=== PATIENT | male | born 1975 | race Caucasian/White ===

== ENCOUNTER 2022-06-01 13:52 | Emergency (ER) | payer SELFPAY ==
[2022-06-01 13:54] VITALS: TEMP 36.7; BMI 24.4
[2022-06-01 14:01] VITALS: BP 115/66; PULSE 64; RESP 18; TEMP 36.6; O2SAT 99
--- NOTE | 2022-06-01 14:30 | ED.VIS.BACK ---
HPI History of Present Illness Chief Complaint: Back Narrative Narrative: Patient presents with back pain that started after lifting his dog, he heard a snap in his back and he is in too much pain to ambulate. The pain does not radiate into his leg. He has no bowel or bladder compromise. No saddle anesthesia. He does not have a foot drop. [facility] Medical History no medical history Home Medications oxycodone-acetaminophen 5 mg-325 mg tablet (Percocet) 1 tab PO Q6H PRN pain 3 days #12 tabs 06/01/22 [Rx Last Taken Unknown] oxycodone-acetaminophen 5 mg-325 mg tablet 1 tab PO Q6H PRN PRN Pain 3 days #12 TABLETS 06/02/22 [Rx Last Taken Unknown] Allergy/AdvReac Type Severity Reaction Status Date / Time guaifenesin [From Robitussin] Allergy Hives Verified 06/01/22 13:53 Surgical History no surgical history Social History Smoking Status: Never smoker ROS ROS ED ROS Narrative Past medical history: Reviewed Medications: Reviewed Social history: Noncontributory Review of systems: All systems negative except as indicated General: No fever Neck: No neck pain Cardiovascular: No chest pain Respiratory: No shortness of breath or cough Gastrointestinal: No abdominal pain, nausea vomiting or diarrhea Genitourinary: No dysuria, no urinary retention symptoms or incontinence. Musculoskeletal: Back pain as in HPI Skin: No rash Neurological: No weakness or paresthesias Hematologic: No easy bleeding or easy bruising EXAM Physical Exam Narrative Exam Narrative: Vitals reviewed General: Patient appears uncomfortable HEENT: Moist mucous membranes Eyes: Right eye shows haziness from a prior infection. Left eye is normal Neck: Nontender Cardiovascular normal heart rate Respiratory: No respiratory difficulty speaking in full sentences Abdomen: Soft and nontender, there is no suprapubic mass or pain Back: There is some tenderness over the lumbar region, pain is spinal and paraspinal both but mostly on the left. Extremities: Moves all extremities without joint pain or signs of trauma Neurological: There is normal plantar flexion and dorsiflexion of both feet and great toes. Patellar and Achilles reflexes are normal. Normal strength and sensation. Negative straight leg test. Skin: No rash Psychiatric: Slightly anxious. Const Vital Signs: 06/01/22 13:54 06/01/22 14:01 06/01/22 18:00 Temperature 98.0 F 97.8 F Temperature Source Temporal Temporal Pulse Rate 64 98 Respiratory Rate 18 18 Blood Pressure 115/66 Blood Pressure Mean 82 Pulse Ox 99 100 Oxygen Delivery Method Room Air Room Air MDM MDM MDM Narrative Medical decision making narrative: Patient required multiple doses of analgesics, he was in quite a bit of pain I could not get him to ambulate at that time I made the decision to order an MRI, this was read as L4-L5 disc herniation without any kind of compression. Again I evaluated him he is neurologically intact. I believe he can be discharged home I will set him up with a back specialist and given analgesia. Radiography Diagnostic Testing: Clinical Impression(s) from Imaging Studies Lumbar Spine MRI 06/01/22 14:47 IMPRESSION: undefined Discharge Plan Triage Chief Complaint: Back ED Provider: Carmine Kyle Dx/Rx/DC Orders Clinical Impression: Back pain, Acute herniated disc Instructions: ED Herniated Intervertebral Disk Prescriptions: New oxycodone-acetaminophen [Percocet] 5-325 mg tablet 1 tab PO Q6H PRN (Reason: pain) 3 Days Qty: 12 0RF oxycodone-acetaminophen [oxycodone-acetaminophen] 5-325 mg tablet 1 tab PO Q6H PRN PRN (Reason: Pain) 3 Days Qty: 12 0RF Primary Care Provider: Care Physician,No Primary Referrals: Dandre Howard DO [Med Staff - Active Staff] - 3-5 Days [facility] Doctor,Out of [Non-Staff] - Disposition Disposition: Home, Self Care Discharge Date/Time: 06/01/22 20:51
[2022-06-01] MEDS: HYDROmorphone 1 MG/ML Syringe IV ×3 (14:46→20:41)
--- NOTE | 2022-06-01 14:47 | MRI_ITS ---
EXAM: MR LUMBAR SPINE WITHOUT INTRAVENOUS CONTRAST CLINICAL INDICATION: weakness TECHNIQUE: Multiplanar and multisequence MR images of the lumbar spine without intravenous contrast. This report was created using [employer] report generation technology. COMPARISON: None. FINDINGS: VERTEBRAE: Unremarkable. Vertebral body heights are preserved. Normal vertebral bodies and posterior elements. Normal alignment. No spondylolisthesis. There is preservation of the normal lumbar lordosis. SPINAL CORD: Unremarkable. Normal position and signal intensity of the conus medullaris. SOFT TISSUES: Unremarkable. DISCS/SPINAL CANAL/NEURAL FORAMINA: No demonstrated fracture. Vertebral bodies are normal in height. T12-L1: Normal disc height and morphology. Normal bilateral facet joints. Normal central canal. Normal bilateral lateral recesses. Normal intervertebral neural foramina. L1-2: Normal disc height and morphology. Normal bilateral facet joints. Normal central canal. Normal bilateral lateral recesses. Normal intervertebral neural foramina. L2-3: Normal disc height and morphology. Normal bilateral facet joints. Normal central canal. Normal bilateral lateral recesses. Normal intervertebral neural foramina. L3-4: Normal disc height and morphology. Normal bilateral facet joints. Normal central canal. Normal bilateral lateral recesses. Normal intervertebral neural foramina. L4-5: Disc dehydration and mild disc space narrowing. There is a small, noncompressive left paramedian disc protrusion causing minimal effacement of the ventral thecal sac. No canal stenosis. Foramina are patent. L5-S1: Normal disc height and morphology. Normal bilateral facet joints. Normal central canal. Normal bilateral lateral recesses. Normal intervertebral neural foramina. EXAM: MR LUMBAR SPINE WITHOUT INTRAVENOUS CONTRAST CLINICAL INDICATION: weakness TECHNIQUE: Multiplanar and multisequence MR images of the lumbar spine without intravenous contrast. This report was created using [employer] report generation technology. COMPARISON: None. FINDINGS: VERTEBRAE: Unremarkable. Vertebral body heights are preserved. Normal vertebral bodies and posterior elements. Normal alignment. No spondylolisthesis. There is preservation of the normal lumbar lordosis. Noncompressive L4-5 disc protrusion. Mild degenerative disc changes at L4-5. Electronically Signed: Marylin Evans MD at 17:43 EST Reading Location ID and State: [id number] / Tel , Service support , MRI/Spine Lumbar (Routine) IMPRESSION: undefined
[2022-06-01 18:00] VITALS: PULSE 98; RESP 18; O2SAT 100
--- NOTE | 2022-06-01 20:24 | ED.RN ---
pt comes to door states that she wants mri disc and dc papers. told pt. that i will talk to dr. graf when he comes out of a intubation.
[2022-06-01] MEDS: oxyCODONE 5 MG Tablet PO (20:41)
[2022-06-01 20:44] VITALS: BP 126/78; PULSE 99; RESP 16; TEMP 37.2; O2SAT 99
== END 2022-06-01 20:51 | disposition home or self-care (01) ==
PROVIDERS: Emergency Provider Emergency Medicine; Visit Provider Emergency Medicine
DX: M51.26 Other intervertebral disc displacement, lumbar region (principal); M54.9 Dorsalgia, unspecified
CPT/HCPCS: 72148; 96374; 96376; 99284